=== PATIENT | male | born 1985 | race Caucasian/White ===

== ENCOUNTER 2022-07-13 09:48 | Emergency (ER) | payer BC ==
[~2022-07-13] VITALS: Ht 25.4 cm; Wt 95.5 kg
[~2022-07-13 09:48] MED LIST: AMOXICILLIN 50500 MG PO; NORCO 325 MG-51 TAB PO; NORCO 325 MG-7.1 TAB PO; PENICILLIN V500 MG PO
[2022-07-13 09:58] VITALS: BP 142/99; TEMP 97.9
[2022-07-13] MEDS ORDERED: CLEOCIN HCL300 MG PO (10:31)
[2022-07-13] MEDS ORDERED: NORCO 325 MG-51 TAB PO (10:36)
[2022-07-13 11:04] VITALS: PULSE 112
== END 2022-07-13 11:06 | disposition home or self-care (01) ==
LOC: COL.ER 09:48
DX: K04.7 Periapical abscess without sinus (principal)